=== PATIENT | female | born 1995 | race Caucasian/White ===

== ENCOUNTER 2021-08-04 09:46 | Day surgery (SDC) | payer OTHER ==
[2021-08-04 10:22] VITALS: BMI 29.2
[2021-08-04] MEDS ORDERED: hydrALAZINE 20 MG/ML VIAL SLOW IVP PRN (10:29)
[2021-08-04 11:16] LABS: Hemoglobin 9.8 g/dL (12.0-15.5); Mean Corpuscular HGB CONC 32.9 g/dL (32.0-36.0); Mean Corpuscular Hemoglobin 26.9 pg (27.0-33.0); Mean Corpuscular Volume 81.9 fl (81.6-98.3); Mean Platelet Volume 9.9 fl (7.4-10.4); Platelet Count 188 10x3/uL (150-450); RBC Distribution Width 13.9 % (11.5-14.5); Red Blood Cell (RBC) Count 3.64 10x6/uL (3.90-5.03); White Blood Cell (WBC) Count 8.4 10x3/uL (3.5-10.5)
[2021-08-04 11:28] LABS: Anion Gap 11 mmol/L (10-20); BUN (Urea Nitrogen) 9 mg/dL (7.0-18.7); Calc. Creatinine Clearance 215 mL/min (70-130); Calcium 9.2 mg/dL (7.8-10.44); Carbon Dioxide 24 mmol/L (22-29); Chloride 104 mmol/L (98-107); Glucose 91 mg/dL (70-105); Potassium 4.2 mmol/L (3.5-5.1); Sodium 135 mmol/L (136-145)
== END 2021-08-04 12:08 | disposition home or self-care (01) ==
LOC: CSHLD/OP 09:46
PROVIDERS: ATTEND Obstetrics & Gynecology
DX: O47.1 False labor at or after 37 completed weeks of gestation (principal); O99.891 Other specified diseases and conditions complicating pregnancy; R00.0 Tachycardia, unspecified; R00.2 Palpitations; O99.013 Anemia complicating pregnancy, third trimester; Z3A.38 38 weeks gestation of pregnancy
CPT/HCPCS: 80048; 85027; 93005; 93010; 99283

== ENCOUNTER 2021-08-07 11:33 | Outpatient (CLI) | payer OTHER | END 2021-08-07 11:34 | disposition home or self-care (01) | LOC: CSHLAB 11:33 | PROVIDERS: ATTEND Student in an Organized Health Care Education/Training Program | DX: Z20.822 Contact with and (suspected) exposure to COVID-19 (principal) | CPT/HCPCS: 87811 ==

== ENCOUNTER 2021-08-10 21:40 | Inpatient (IN) | payer OTHER ==
[~2021-08-10 21:40] MED LIST: Bupivacaine/Epinephrine 0.25% 30 ML VIAL ONE
[2021-08-10] MEDS ORDERED: HYDROcodone/Acetaminophen 5/325 mg Tablet PO PRN ×2 (21:58)
[2021-08-10] MEDS ORDERED: Ibuprofen 800 MG TAB PO PRN (21:58)
[2021-08-10] MEDS ORDERED: Acetaminophen 500 MG TAB PO PRN (21:58)
[2021-08-10] MEDS ORDERED: Ondansetron PF 4 MG/2 ML Vial IVP PRN (21:58)
[2021-08-10] MEDS ORDERED: Promethazine HCl 25 MG/ML VIAL IM PRN (21:58)
[2021-08-10] MEDS ORDERED: hydrALAZINE 20 MG/ML VIAL SLOW IVP PRN (21:58)
[2021-08-10] MEDS ORDERED: Butorphanol Tartrate 1 MG/ML VIAL SLOW IVP PRN (21:58)
[2021-08-10] MEDS ORDERED: Lidocaine 1% (PF) 30 ML VIAL SC PRN (21:58)
[2021-08-10] MEDS ORDERED: Lactated Ringer's 1,000 ML IV SCH (22:30)
[2021-08-10 22:39] LABS: Bilirubin Neg (Negative); Blood, Urine 10 (Negative); Clarity Clear (Clear); Glucose, Urine (Dipstick) Normal (Negative); Ketone, Urine Negative (Negative); Leukocyte Negative (Negative); Nitrite Negative (Negative); Protein, Urine (Dipstick) 15 mg/dl (Neg-Trace); Specific Gravity, Urine 1.015 (1.002-1.036); Urobilinogen Normal mg/dL (Less than 2)
[2021-08-10 22:46] LABS: Bacteria/HPF None Seen HPF (None Seen); RBC/HPF 0-3 HPF (0-3); Squamous Epithelial 0-3 HPF (0-3); WBC/HPF 0-3 HPF (0-3)
[2021-08-10] MEDS ORDERED: NS w/ Oxytocin 30 units 500 ML IV SCH ×2 (23:00)
[2021-08-10 23:06] LABS: Hemoglobin 9.4 g/dL (12.0-15.5); Mean Corpuscular Hemoglobin 26.7 pg (27.0-33.0); Mean Platelet Volume 10.4 fl (7.4-10.4); Platelet Count 202 10x3/uL (150-450); RBC Distribution Width 14.2 % (11.5-14.5); Red Blood Cell (RBC) Count 3.52 10x6/uL (3.90-5.03); White Blood Cell (WBC) Count 13.2 10x3/uL (3.5-10.5)
[2021-08-10 23:12] VITALS: BMI 29.9
[2021-08-10 23:16] LABS: SARS-CoV-2 NAA Rapid Test Not Detected (NotDetected)
[2021-08-10 23:39] LABS: Hep B Surf Ag Non-Reactive S/CO (NonReactive); Syphilis Antibody Nonreactive (Nonreactive); Syphilis Antibody Index 0.03 S/CO (<1.00 Non-Reactive)
[2021-08-10 23:46] LABS: HBSAg Index 0.15 S/CO (0-0.99)
[2021-08-10] MEDS ORDERED: Cepastat Lozenges 1 LOZ PO PRN (23:46)
[2021-08-11] MEDS ORDERED: Fentanyl 2 mcg/Bup 0.1% Cadd 100 ML ONE (02:26)
[2021-08-11] MEDS ORDERED: Promethazine HCl 25 MG/ML VIAL IM PRN (03:55)
[2021-08-11] MEDS ORDERED: Ondansetron PF 4 MG/2 ML Vial IVP PRN ×2 (03:55→11:23)
[2021-08-11] MEDS ORDERED: Moisturizing Cream (Eucerin) 113 GM JAR TOP PRN (03:55)
[2021-08-11] MEDS ORDERED: Naloxone HCl 0.4 mg/ml Vial IVP PRN ×2 (03:55)
[2021-08-11] MEDS ORDERED: ePHEDrine Sulfate 50 MG/10 ML VIAL SLOW IVP PRN (03:55)
[2021-08-11] MEDS ORDERED: Lactated Ringer's 500 ML IV PRN (03:55)
[2021-08-11] MEDS ORDERED: diphenhydrAMINE 50 MG/ML VIAL IVP PRN (03:55)
[2021-08-11] MEDS ORDERED: Fentanyl 2 mcg/Bupivacaine 0.1% Cassette 100 ML EPIDURAL SCH (04:00)
[2021-08-11] MEDS ORDERED: Communication Order-Pharmacy FS SCH (04:00)
[2021-08-11] MEDS: Lactated Ringer's 1,000 ML IV SCH ×2 (07:09→08:08)
[2021-08-11] MEDS: Misoprostol 200 MCG TAB ONE (10:39)
[2021-08-11] MEDS ORDERED: Misoprostol 200 MCG TAB VAG PRN (11:23)
[2021-08-11] MEDS ORDERED: Boostrix 0.5 ML (Tdap) VIAL IM ONE (11:23)
[2021-08-11] MEDS ORDERED: Methylergonovine 0.2 MG/ML VIAL IM PRN (11:23)
[2021-08-11] MEDS ORDERED: diphenhydrAMINE 25 MG CAP PO PRN (11:23)
[2021-08-11] MEDS ORDERED: Lanolin Ointment 7 GM TUBE TOP PRN (11:23)
[2021-08-11] MEDS ORDERED: Bisacodyl 10 MG SUPP PR PRN (11:23)
[2021-08-11] MEDS ORDERED: hydrALAZINE 20 MG/ML VIAL SLOW IVP PRN (11:23)
[2021-08-11] MEDS ORDERED: Preparation H Ointment 28 GM TUBE PR PRN (11:23)
[2021-08-11] MEDS ORDERED: Benzocaine-Menthol 82.5 ML CAN TOP PRN (11:23)
[2021-08-11] MEDS ORDERED: Milk Of Magnesia 30 ML UDCUP PO PRN (11:23)
[2021-08-11] MEDS ORDERED: NS w/ Oxytocin 30 units 500 ML IV SCH (11:23)
[2021-08-11] MEDS: Ferrous Sulfate 325 MG TAB PO SCH (16:49)
[2021-08-11] MEDS: Acetaminophen 325 MG TAB PO PRN (18:59)
[2021-08-11] MEDS: Ibuprofen 800 MG TAB PO SCH (21:38)
[2021-08-11] MEDS: Docusate 100 MG CAP PO SCH (21:38)
[2021-08-12] MEDS: Ibuprofen 800 MG TAB PO SCH (05:17)
[2021-08-12] MEDS ORDERED: Prenatal Vitamin 1 TAB PO SCH (09:00)
[2021-08-12] MEDS: Docusate 100 MG CAP PO SCH (09:42)
[2021-08-12] MEDS: Acetaminophen 325 MG TAB PO PRN (09:45)
[2021-08-12] MEDS: Ferrous Sulfate 325 MG TAB PO SCH (09:47)
[2021-08-12 11:08] VITALS: BP 120/67; TEMP 98
== END 2021-08-12 13:00 | disposition home or self-care (01) | DRG 807 ==
LOC: CSHLD/OP 21:40 → CSHLD 21:45 → CSHPP 08-11 13:39
PROVIDERS: ADMIT Student in an Organized Health Care Education/Training Program; ATTEND Student in an Organized Health Care Education/Training Program
PROC: 10E0XZZ Delivery of Products of Conception, External Approach (ICD-10-PCS; principal; 2021-08-11)
PROC: 0KQM0ZZ Repair Perineum Muscle, Open Approach (ICD-10-PCS; 2021-08-11)
PROC: 10907ZC Drainage of Amniotic Fluid, Therapeutic from Products of Conception, Via Natural or Artificial Opening (ICD-10-PCS; 2021-08-11)
PROC: 3E033VJ Introduction of Other Hormone into Peripheral Vein, Percutaneous Approach (ICD-10-PCS; 2021-08-11)
DX: O75.2 Pyrexia during labor, not elsewhere classified (principal); Z37.0 Single live birth; O70.1 Second degree perineal laceration during delivery; Z20.822 Contact with and (suspected) exposure to COVID-19; Z3A.39 39 weeks gestation of pregnancy; F41.9 Anxiety disorder, unspecified; O99.344 Other mental disorders complicating childbirth
CPT/HCPCS: 36415; 81001; 85027; 86780; 86850; 86900; 86901; 87340; J2590; J7120

== ENCOUNTER 2022-03-11 14:46 | Emergency (ER) | payer OTHER | END 2022-03-11 16:20 | disposition home or self-care (01) | LOC: CSHERS 14:46 | DX: M79.605 Pain in left leg (principal) ==

== ENCOUNTER 2022-03-13 19:29 | Emergency (ER) | payer OTHER | END 2022-03-13 20:56 | disposition home or self-care (01) | LOC: CSHERS 19:29 | DX: B02.9 Zoster without complications (principal) | CPT/HCPCS: 99282 ==